=== PATIENT | male | born 1995 | race African-American/Black ===

== ENCOUNTER 2016-05-27 10:25 | Emergency (ER) ==
[2016-05-27 11:02] VITALS: BP 120/079
--- NOTE | 2016-05-27 11:03 | PROVIDER DOCUMENTATION ---
HPI-Male Problem - General Source: patient - History of Present Illness-Male Quality of Pain: reports: none Severity in ED: reports: mild Onset/Duration: reports: abrupt, other (4 weeks) Timing: reports: still present Context/Activities at Onset: reports: sexual activity Urinary Symptoms: reports: no symptoms Sexual intercourse history: reports: Less Than 2 Months Ago, Single Partner Contraception: reports: none Associated Symptoms: reports: none Associated Symptoms: reports: denies symptoms Similar Symptoms Previously?: No Recently seen or treated by another doctor?: No <Chetan Moreno - Last Filed: 05/27/16 11:00> <Terry Alas - Last Filed: 05/27/16 12:46> - General Chief Complaint: Male Stated Complaint: POSS STD Time Seen by Provider: 05/27/16 10:56 Allergies/Adverse Reactions: Patient Allergies Allergy/AdvReac Type Severity Reaction Status Date / Time No Known Allergies Allergy Verified 05/27/16 10:57 Home Medications: Home Medication List Medication Instructions Recorded Confirmed Last Taken Type Sulfamethoxazole/Trimethoprim 1 each PO BID #10 tablet 05/27/16 Unknown Rx [Bactrim Ds Tablet] - History of Present Illness-Male Nature of Presenting Problem: patient is a 20 y/o m that presents wanting to be checked for StD. He reports sleeping with a woman 4 weeks ago and she called saying she had gonorrhea and he gave it to her. He has had no symptoms (Chetan Moreno) Review of Systems - Adult - REVIEW OF SYSTEMS - ADULT Constitutional: reports: no symptoms reported Eyes: reports: no symptoms reported Ears, Nose, Mouth & Throat: reports: no symptoms reported Cardiovascular: reports: no symptoms reported Respiratory: reports: no symptoms reported Gastrointestinal: reports: no symptoms reported Genitourinary: reports: no symptoms reported Musculoskeletal: reports: no symptoms reported Integumentary: reports: no symptoms reported Neurological: reports: no symptoms reported Psychiatric: reports: no symptoms reported Endocrine: reports: no symptoms reported Hematologic/Lymphatic: reports: no symptoms reported Allergic/Immunologic: reports: no symptoms reported All Other Systems: Reviewed and Negative <Chetan Moreno - Last Filed: 05/27/16 11:00> Past History - Adult - PAST MEDICAL HISTORY-ADULT Review of Records: reports: Old Records Reviewed, Nursing Assessment Review, Medications Reviewed - PRIOR SURGERIES/PROCEDURES Surgical/Procedure History: reports: none - IMMUNIZATION STATUS Childhood Immunizations: See Nurse Assessment Flu Vaccine: See Nurse Assessment - FAMILY HISTORY Family History: reviewed, not pertinent - SOCIAL HISTORY Smoking: non-smoker Living Situation: family <Chetan Moreno - Last Filed: 05/27/16 11:00> Physical Exam-General - PHYSICAL EXAM-ADULT Initial Vital Signs Reviewed: Yes - CONSTITUTIONAL General Appearance: appears well, alert, no apparent distress - EYES Eyes: PERRL/EOMI, pink conjunctivae - HEAD, EARS, NOSE, MOUTH & THROAT HENMT: normocephalic/atraumatic, moist mucous membranes, normal ENT inspection - RESPIRATORY Respiratory: lungs clear, normal breath sounds, no respiratory distress, no accessory muscle use - CARDIOVASCULAR Cardiovascular: regular rate, rhythm, no murmur - GASTROINTESTINAL (ABDOMEN) Abdominal Exam: normal bowel sounds, non tender, soft - MUSCULOSKELETAL Extremity: normal range of motion, normal inspection - SKIN Integumentary: normal color, warm/dry - NEUROLOGIC Neurologic: grossly normal, no motor/sensory deficits - PSYCHIATRIC Psych/Mental Status: normal mood/affect, normal thought process, oriented x 3 <Chetan Moreno - Last Filed: 05/27/16 11:00> Progress <Chetan Moreno - Last Filed: 05/27/16 11:00> <Terry Alas - Last Filed: 05/27/16 12:46> - PLAN OF CARE/RESULTS Progress/Plan/Lab Results: Orders Category Date Time Status CHLAMYDIA AND GC BY PCR URINE [SOPER] Stat Lab 05/27/16 11:[address] W/POSS RFLX CULT [URINALYSIS] Stat Lab 05/27/16 11:49 Completed URINE CULTURE [RM] Routine Lab 05/27/16 12:33 Ordered Azithromycin [Zithromax] Med 05/27/16 12:45 Once 1,000 mg PO NOW ONE CefTRIAXONE [Rocephin] Med 05/27/16 12:45 Once 250 mg IM NOW ONE Lidocaine 1% Pf [Xylocaine-Mpf 1%] Med 05/27/16 12:45 Once 5 ml INJ NOW ONE Laboratory Tests 05/27/16 11:49 Urine Source CLEAN CATCH Urine Color YELLOW Urine Clarity SL. CLOUDY A Urine pH 6.0 Ur Specific [place] 1.015 Urine Protein NEGATIVE Urine Ketones NEGATIVE Urine Blood NEGATIVE Urine Nitrite NEGATIVE Urine Bilirubin NEGATIVE Urine Urobilinogen 1+(1 mg/dL) Urine Microscopic RBC <10 Urine WBC 1+ A Urine Microscopic WBC 20-40 A Ur Epithelial Cells <10 Urine Bacteria 1+ Urine Glucose NEGATIVE Vital Signs Temp Pulse Resp BP Pulse Ox 05/27/16 10:55 97.9 F 60 16 120/079 99 No Known Allergies Allergy (Verified 05/27/16 10:57) No Home Medications 05/27/16 Laboratory 05/27/16 11:49 Urine Source CLEAN CATCH Urine Color YELLOW Urine Clarity SL. CLOUDY A Urine pH 6.0 Ur Specific [place] 1.015 Urine Protein NEGATIVE Urine Ketones NEGATIVE Urine Blood NEGATIVE Urine Nitrite NEGATIVE Urine Bilirubin NEGATIVE Urine Urobilinogen 1+(1 mg/dL) Urine Microscopic RBC <10 Urine WBC 1+ A Urine Microscopic WBC 20-40 A Ur Epithelial Cells <10 Urine Bacteria 1+ Urine Glucose NEGATIVE (Terry Alas) Departure <Chetan Moreno - Last Filed: 05/27/16 11:00> - Departure Time of Disposition Order: 12:46 Certified Medical Emergency: Urgent <Terry Alas - Last Filed: 05/27/16 12:46> - Departure DIAGNOSIS: Screening examination for STD (sexually transmitted disease) UTI (urinary tract infection) Qualifiers: Urinary tract infection type: site unspecified Hematuria presence: without hematuria Qualified Code(s): N39.0 - Urinary tract infection, site not specified Disposition: HOME 01 Condition: Good Additional Instructions: Take medication as prescribed. No sexual activity for 1 week. Follow up with your primary care provider. ED Follow Up Instructions: You have been treated by a care provider in the Emergency Department. These instructions are being provided to you so you can have an understanding of how to care for yourself upon discharge. Upon discharge from the Emergency Department, you are responsible for making arrangements for follow-up care by a physician of your choice. Take all prescribed medications as directed. Return to the Emergency Department immediately for any new or worsening symptoms. You may call the Physician Referral phone number at [phone] to obtain a list of Physicians who are taking new patients. Prescriptions: Sulfamethoxazole/Trimethoprim [Bactrim Ds Tablet] 1 each PO BID #10 tablet Attestation - Scribe Verification/Attestation Scribe:: Chetan Moreno Acting as Scribe for:: Terry Alas Scribe documention review:: This chart was documented by a scribe and accurately reflects the service the provider performed and the decisions made by the provider. - Physician/ ERMELINDA Attestation Patient care was provided by Advanced Practice Provider:: Yes Advanced Practice Provider:: Terry Alas Advanced Practice Provider documentation review:: The Mid-level provider documentation, treatment plan and medical decision making was reviewed by the physician who agrees with all treatment and medical decision making by the MLP. <Chetan Moreno - Last Filed: 05/27/16 11:00> - Physician/ ERMELINDA Attestation Patient care was provided by Advanced Practice Provider:: Yes Advanced Practice Provider:: Terry Alas Advanced Practice Provider documentation review:: The Mid-level provider documentation, treatment plan and medical decision making was reviewed by the physician who agrees with all treatment and medical decision making by the MLP. <Terry Alas - Last Filed: 05/27/16 12:46> Physician Attestation - Physician Attestation I, the provider, attest to the following statement:: Terry Alas Physician documentation Attestation:: This documentation recorded by the scribe accurately reflects the service I personally performed and the decisions made by me. <Chetan Moreno - Last Filed: 05/27/16 11:00>
[2016-05-27 12:31] LABS: URINE SOURCE CLEAN CATCH
[2016-05-27 12:32] LABS: BILIRUBIN URINE NEGATIVE (NEGATIVE); BLOOD URINE NEGATIVE (NEGATIVE); CLARITY SL. CLOUDY (CLEAR); COLOR YELLOW; GLUCOSE URINE NEGATIVE (NEGATIVE); LEUKOCYTES URINE 1+ (NEGATIVE); NITRITE URINE NEGATIVE (NEGATIVE); PROTEIN URINE NEGATIVE (NEGATIVE); SP GRAVITY URINE 1.015; UROBILINOGEN URINE 1+(1 mg/dL)
[2016-05-27 12:33] LABS: URINE CULTURE PL NEEDED? YES; URINE EPITHELIAL CELLS <10 /HPF (<10); URINE RBC <10 /HPF (<10); URINE WBC 20-40 /HPF (<10)
[2016-05-27] MEDS ORDERED: ROCEPHIN IM ONE (12:45)
[2016-05-27] MEDS ORDERED: ZITHROMAX PO ONE (12:45)
[2016-05-27] MEDS ORDERED: XYLOCAINE-MPF 1% INJ ONE (12:45)
== END 2016-05-27 13:47 | disposition home or self-care (01) ==
LOC: P.ED 10:25
DX: N39.0 Urinary tract infection, site not specified (principal); Z11.3 Encounter for screening for infections with a predominantly sexual mode of transmission
CPT/HCPCS: 51702; 81001; 87088; 87491; 87591; 96372; J0696